=== PATIENT | female | born 1975 | race Caucasian/White ===

== ENCOUNTER → 2016-09-10 | Outpatient (CLI) | payer BC ==
--- NOTE | 2016-09-10 12:23 | DI ---
XR CLAVICLE,09/10/2016 8:54 AM: Clinical History: Left clavicular pain. Previous Exam: None at this facility. Findings: 2 views of the left clavicle are obtained, and demonstrate anatomic alignment without fractures. The lung apices are clear. Impression: Normal left clavicle.
--- NOTE | 2016-09-10 12:23 | DI ---
XR C-SPINE COMPLETE MIN 4VW,09/10/2016 8:54 AM: Clinical History: Neck injury. Previous Exam: None at this facility. Findings: AP, lateral, oblique and odontoid views of the cervical spine are obtained, and demonstrate mild reve rsal of the normal lordotic curvature of the cervical spine centered at the C5/6 level. There is loss of intervertebral disc height and there is uncovertebral joint osteophyte formation. There is some degenerative changes of the posterior articulating facets. The lung apices are clear. The prevertebral soft tissues are unremarkable as well. There is loss of intervertebral disc height worst at the C5/6 level. Impression: Degenerative changes of the cervical spine worst at the C5/6 level.
== END ==
LOC: MOB RAD 09:05
PROVIDERS: ATTEND Physician Assistant Medical
DX: S19.9XXA Unspecified injury of neck, initial encounter (principal); M25.512 Pain in left shoulder; M47.812 Spondylosis without myelopathy or radiculopathy, cervical region; S46.812A Strain of other muscles, fascia and tendons at shoulder and upper arm level, left arm, initial encounter
CPT/HCPCS: 72050; 73000

== ENCOUNTER → 2016-09-10 | Outpatient (CLI) | payer BC ==
--- NOTE | 2016-09-11 09:24 | DI ---
MRI UP EXTREMITY JNT W/O CN,09/10/2016 4:00 PM: Clinical History: Strain of the trapezius muscle. Previous Exam: Plain film of the clavicle performed September 10, 2016 Findings: Multiplanar MR images are obtained of the left shoulder without contrast. Bony alignment is anatomic. Visualized portions of the trapezius is unremarkable. There is no mass. There is some increased signal within portions of the subscapularis tendon and within the pectoralis muscle. This is only partially visualized. The glenohumeral joint is normal. The glenoid labrum is normal as far as evaluated. There is some mild tendinosis in the supraspinatus tendon. The infraspinatus, subscapularis and teres minor tendons are unremarkable. The long head of the biceps tendon is unremarkable. The major vascular flow voids are unremarkable. Impression: 1. There is some increased signal within the pectoralis muscle. This is most consistent with a partia l tear, but is incompletely evaluated on this exam. 2. Mild tendinosis of the supraspinatus tendon.
== END ==
LOC: MRI 15:55
PROVIDERS: ATTEND Physician Assistant Medical
DX: M25.512 Pain in left shoulder (principal); M65.812 Other synovitis and tenosynovitis, left shoulder
CPT/HCPCS: 73221

== ENCOUNTER → 2016-09-22 | Outpatient (CLI) | payer BC ==
[2016-09-22 08:25] LABS: BLOOD UREA NITROGEN 15 mg/dL (7-22); BUN/CREATININE RATIO 18.75 (6-20); CALCIUM 9.1 mg/dL (8.7-10.7); EST GLOMERULAR FILTRATION > 60 (>60 ml/min/1.73m(2)); HEMATOCRIT 39.4 % (37.0-47.0); HEMOGLOBIN 13.3 g/dL (12.0-16.0); MEAN CORPUSCULAR HEMOGLOBIN 30.7 PG (27-31); MEAN CORPUSCULAR HGB CONC 33.8 g/dL (33-37); MEAN PLATELET VOLUME 10.2 FL (7.4-12.2); RED BLOOD COUNT 4.33 10^6/uL (4.20-5.40)
== END ==
LOC: LAB 07:41
PROVIDERS: ATTEND Orthopaedic Surgery
DX: M25.512 Pain in left shoulder (principal)
CPT/HCPCS: 36415; 80053; 85027

== ENCOUNTER → 2016-11-24 | Outpatient (CLI) | payer BC ==
--- NOTE | 2016-11-24 14:33 | DI ---
US SOFT TISSUE HEAD/NECK,11/24/2016 2:02 PM: Clinical History: Swelling and pain in the left supraclavicular region. Previous Exam: MRI and plain films performed September 10, 2016 Findings: Multiple grayscale and color Doppler sonographic images are obtained through the soft tissues of the left supraclavicular region, and demonstrate normal-appearing underlying subcutaneous fat and muscula ture. The left subclavian vein and artery are within normal limits. There is no fluid collection. Impression: Normal left supraclavicular region without fluid collection.
== END ==
LOC: US 13:53
PROVIDERS: ATTEND Physician Assistant Surgical
DX: M54.2 Cervicalgia (principal); M25.512 Pain in left shoulder
CPT/HCPCS: 76536

== ENCOUNTER → 2016-11-28 | Outpatient (CLI) | payer BC ==
--- NOTE | 2016-11-28 10:34 | DI ---
MRI UP EXTREMITY W/WO CN,11/28/2016 7:41 AM: Clinical History: Left clavicular edema and swelling. Previous Exam: September 10, 2016 Findings: Multiplanar MR images are obtained through the left supraclavicular region, and demonstrate anatomic alignment. There are mild degenerative changes involving the left acromioclavicular joint. There is levoscoliosis of the upper thoracic spine. There is normal signal within the musculature. Visualized portions of the cervical spine demonstrate normal course and caliber are normal signal jimenez [employer]eristics. The thyroid is unremarkable. Visualized portions of the brachial plexus are unremarkable. The cervical spine is not well evaluated on these images. The vasculature appears grossly normal. Impression: No abnormal findings within the left periclavicular region.
== END ==
LOC: MRI 07:32
PROVIDERS: ATTEND Physician Assistant Surgical
DX: R22.1 Localized swelling, mass and lump, neck (principal); R20.2 Paresthesia of skin
CPT/HCPCS: 73220

== ENCOUNTER → 2016-12-25 | Outpatient (CLI) | payer BC ==
--- NOTE | 2016-12-25 21:31 | DI ---
ULTRASOUND OF THE BASE OF THE NECK, 12/25/2016 3:35 PM: Clinical History: Soft tissue mass in the region of the left trapezius. Previous Exam: 11/24/2016. Both sides of the base of the neck were palpated by myself and no discrete mass could be seen althoug h there is clearly asymmetry between the right and left sides. The left side over the region of the t rapezius is more prominent than the right. Scans are performed by myself over the right and left trapezius muscles. Scans are performed in the c oronal plane and sagittal plane bilaterally while the patient was relaxed with the arms down and when she raised her shoulders. The left trapezius muscle does appear to be slightly larger than the right although this is difficult to prove quantitatively because of the asymmetry of the shoulders. With f lexion, the left trapezius muscle also appears to be slightly more prominent. This patient has underl minal scoliosis and this may account for the asymmetric appearance of the trapezius muscles. No discre te mass is seen either within the muscle or deep to the muscle. Reading: There is suggestion that the left trapezius muscle is larger than the right both are in the relaxed s jur[place] and with shortening of the shoulders. This may account for the asymmetry that is noted clinicall y between the right and left sides of the neck. No mass is identified.
--- NOTE | 2016-12-25 21:46 | DI ---
STANDING SCOLIOSIS SERIES, 12/25/2016 3:35 PM: Clinical History: Idiopathic cervical thoracic scoliosis. The patient has a palpable prominence on th e left side between the neck and shoulder compared to the right side. Previous Exam: None at this facility. Standing AP and lateral views are submitted. The vertebral bodies are of normal height and size. The disc spaces are normal. The pedicles and posterior elements are unremarkable. There is dextroscolios is of the mid cervical spine and the thoracolumbar junction with compensatory levoscoliosis of the up per thoracic spine and lower lumbar spine. Davis angles for the cervical, thoracic, and lumbar regions are 13 degrees, 21 degrees, 10 degrees, and 4 degrees, respectively. On the AP projection, the ribs from C1-C4 are definitely situated higher than on the right side. This would explain the asymmetry that is detected clinically both visually and by palpation. Reading: Scoliosis as above. The levoscoliosis in the upper thoracic spine allows the left first through fourt h ribs being situated higher than on the right side. This would account for the asymmetric appearance noted clinically and the appearance that there is a palpable mass on the left side compared to the r ight side. The scoliosis would also explain why all of the studies performed so far in the region of the base of the neck and left shoulder have been negative.
== END ==
LOC: US 15:30
PROVIDERS: ATTEND Physician Assistant
DX: M41.23 Other idiopathic scoliosis, cervicothoracic region (principal)
CPT/HCPCS: 72082